=== PATIENT | female | born 1960 | race Caucasian/White ===

== ENCOUNTER 2019-10-18 17:34 | Emergency (ER) | payer BC ==
[2019-10-18] MEDS ORDERED: Lorazepam 1 MG TAB ONE (17:43)
== END 2019-10-18 18:34 | disposition home or self-care (01) ==
LOC: MADERS 17:34
DX: F41.9 Anxiety disorder, unspecified (principal); F43.0 Acute stress reaction; F32.9 Major depressive disorder, single episode, unspecified; Z79.899 Other long term (current) drug therapy
CPT/HCPCS: 99283